=== PATIENT | female | born 1980 | race Caucasian/White ===

== ENCOUNTER 2017-10-05 21:43 | Emergency (ER) | payer OTHER, MEDICAID ==
[2017-10-06] MEDS: KETOROLAC 15 MG INJ IM (01:56)
== END 2017-10-06 03:20 | disposition home or self-care (01) ==
LOC: FTE 21:43
DX: M54.5 Low back pain (principal)
CPT/HCPCS: 81025; 96372; 99284-25

== ENCOUNTER 2019-01-18 21:48 | Emergency (ER) | payer OTHER | END 2019-01-19 01:10 | disposition home or self-care (01) | LOC: FTE 21:48 | DX: S50.861A Insect bite (nonvenomous) of right forearm, initial encounter (principal); W57.XXXA Bitten or stung by nonvenomous insect and other nonvenomous arthropods, initial encounter; Y92.009 Unspecified place in unspecified non-institutional (private) residence as the place of occurrence of the external cause | CPT/HCPCS: 99283; Z7502 ==